=== PATIENT | female | born 1965 | race Caucasian/White ===

== ENCOUNTER 2017-04-14 22:39 | Emergency (ER) | payer OTHER ==
[~2017-04-14] VITALS: Ht 167.6 cm; Wt 77.1 kg
--- OUTSIDE RECORDS SUMMARY | 2017-04-14 22:45 | XMS REPORT | Continuity of Care Document ---
Author Author [facility] Organization [facility] Address Unknown Phone Unavailable Allergies Medications Problems Procedures Results Encounters ACCT No. Visit Date/Time Discharge Status Pt. Type Provider Facility Loc./Unit Complaint [id number] 02/28/2013 10:46:00 2012 23:59:59 C[facility] Outpatient
[2017-04-14] MEDS ORDERED: ITRA100C (22:57)
[2017-04-14] MEDS ORDERED: ESOM40CA52 (22:57)
[2017-04-14] MEDS ORDERED: ONDANSETRON 4 MG/2 ML (SDV) Z0FRAN ONE (23:02)
[2017-04-14] MEDS ORDERED: fentaNYL INJECTION 100 MCG/2 ML AMP ONE (23:02)
[2017-04-14] MEDS ORDERED: NS IV 1000 ML 1,000 ML ONE (23:03)
--- NOTE | 2017-04-14 23:11 | ED Abdominal Pain ---
General Chief Complaint: Abdominal/GI Problems Stated Complaint: ABDOMINAL PAIN/VOMITING Nursing Triage Note: c/o L sided ab pain, with n/v Sepsis Screen: No Definite Risk Source of Information: Patient, Spouse Exam Limitations: No Limitations History of Present Illness Time Seen By Provider: 23:01 Initial Comments Patient presents by private conveyance to the ER with her with chief complaint of about 8:00 tonight sudden onset of nausea vomiting and left-sided abdominal and flank pain. She is not having any discharge or dysuria. She has no fevers or chills or malaise. This has never happened before. She has had no abdominal surgeries. No recent trauma. She is having no constipation or diarrhea. She says she had a colonoscopy over 20 years ago and was told everything was okay. Allergies and Home Medications Allergies Coded Allergies: Penicillins (Verified Allergy, Unknown, 04/14/17) morphine (Verified Allergy, Unknown, 04/14/17) Home Medications Esomeprazole Magnesium 40 Mg Capsule., #30 (Reported) Itraconazole 100 Mg Capsule, #28 (Reported) Review of Systems Constitutional: No chills, No diaphoresis, No fever, No malaise Respiratory: Denies Cough, Denies Shortness of Air Cardiovascular: Denies Chest Pain, Denies Edema Gastrointestinal: See HPI, Denies Abdomen Distended, Abdominal Pain, Denies Diarrhea, Nausea, Denies Vomiting Genitourinary: Denies Burning, Denies Discharge Musculoskeletal: No back pain, No joint pain Skin: No pruritus, No rash Psychiatric/Neurological: Denies Headache, Denies Numbness Past [id number]-Irwhdj Hx Patient Social History Alcohol Use: Denies Use Recreational Drug Use: No Smoking Status: Never a Smoker Recent Foreign Travel: No Contact w/Someone Who Travel: No Recent Infectious Disease Expo: No Recent Hopitalizations: No Surgeries Surgeries: Hysterectomy Respiratory Respiratory Disorders: Pneumonia Neurological Neurological Disorders: Headaches /Migraines Physical Exam Vital Signs VS - Last 72 Hours, by Label 04/14/17 22:49 Temp 98.6 Pulse 83 Resp 18 B/P (MAP) 148/81 Pulse Ox 97 O2 Delivery Room Air Capillary Refill : Less Than 3 Seconds General Appearance: WD/WN, moderate distress HEENT: PERRL/EOMI, pharynx normal Neck: non-tender, supple, normal inspection Respiratory: lungs clear, normal breath sounds Cardiovascular: normal peripheral pulses, regular rate, rhythm, no edema Gastrointestinal: non tender, soft Extremities: non-tender, no calf tenderness, normal capillary refill Back: normal inspection, no CVA tenderness Neurologic/Psychiatric: alert, oriented x 3 Skin: normal color, warm/dry Progress/Results/Core Measures Results/Orders Lab Results Laboratory Tests Test 04/14/17 23:08 Range/Units White Blood Count 12.7 H 4.3-11.0 10^3/uL Red Blood Count 4.69 4.35-5.85 10^6/uL Hemoglobin 14.5 11.5-16.0 G/DL Hematocrit 43 35-52 % Mean Corpuscular Volume 91 80-99 FL Mean Corpuscular Hemoglobin 31 25-34 PG Mean Corpuscular Hemoglobin Concent 34 32-36 G/DL Red Cell Distribution Width 13.2 10.0-14.5 % Platelet Count 303 130-400 10^3/uL Mean Platelet Volume 10.5 H 7.4-10.4 FL Neutrophils (%) (Auto) 71 42-75 % Lymphocytes (%) (Auto) 23 12-44 % Monocytes (%) (Auto) 6 0-12 % Eosinophils (%) (Auto) 0 0-10 % Basophils (%) (Auto) 0 0-10 % Neutrophils # (Auto) 9.0 H 1.8-7.8 X 10^3 Lymphocytes # (Auto) 2.9 1.0-4.0 X 10^3 Monocytes # (Auto) 0.8 0.0-1.0 X 10^3 Eosinophils # (Auto) 0.0 0.0-0.3 10^3/uL Basophils # (Auto) 0.0 0.0-0.1 10^3/uL Urine Color BROWN H Urine Clarity VERY CLOUDY H Urine pH 5 5-9 Urine Specific [place]eland 1.025 H 1.016-1.022 Urine Protein 3+ H NEGATIVE Urine Glucose (UA) NEGATIVE NEGATIVE Urine Ketones 1+ H NEGATIVE Urine Nitrite POSITIVE H NEGATIVE Urine Bilirubin 1+ H NEGATIVE Urine Urobilinogen 1 NORMAL MG/DL Urine Leukocyte Esterase 2+ H NEGATIVE Urine RBC (Auto) 5+ H NEGATIVE Urine RBC TNTC H /HPF Urine WBC 10-25 H /HPF Urine Crystals NONE /LPF Urine Bacteria MODERATE H /HPF Urine Casts NONE /LPF Urine Mucus NEGATIVE /LPF Urine Culture Indicated YES Sodium Level 144 135-145 MMOL/L Potassium Level 4.2 3.6-5.0 MMOL/L Chloride Level 110 H 98-107 MMOL/L Carbon Dioxide Level 19 L 21-32 MMOL/L Anion Gap 15 H 5-14 MMOL/L Blood Urea Nitrogen 18 7-18 MG/DL Creatinine 1.06 0.60-1.30 MG/DL Estimat Glomerular Filtration Rate 54 BUN/Creatinine Ratio 17 Glucose Level 121 H 70-105 MG/DL Calcium Level 9.8 8.5-10.1 MG/DL Phosphorus Level 3.1 2.3-4.7 MG/DL Magnesium Level 2.1 1.8-2.4 MG/DL Total Bilirubin 0.3 0.1-1.0 MG/DL Aspartate Amino Transf (AST/SGOT) 25 5-34 U/L Alanine Aminotransferase (ALT/SGPT) 31 0-55 U/L Alkaline Phosphatase 82 40-136 U/L Troponin I < 0.30 <0.30 NG/ML Total Protein 7.4 6.4-8.2 GM/DL Albumin 4.3 3.2-4.5 GM/DL Amylase Level 96 25-125 U/L My Orders Orders - CAREN LORENZO Fentanyl Injection (Sublimaze Injection (04/14/17 23:02) Ondansetron Injection (Zofran Injectio (04/14/17 23:02) Ns Iv 1000 Ml (Sodium Chloride 0.9%) (04/14/17 23:03) Ct Abd/Pelvis Wo(Kidney Stone) (04/14/17 23:11) Amylase (04/14/17 23:11) Cbc With Automated Diff (04/14/17 23:11) Comprehensive Metabolic Panel (04/14/17 23:11) Magnesium (04/14/17 23:11) Troponin I (04/14/17 23:11) Ua Culture If Indicated (04/14/17 23:11) Phosphorus (04/14/17 23:11) Urine Culture (04/14/17 23:08) Ketorolac Injection (Toradol Injection) (04/15/17 00:00) Ceftriaxone Injection (Rocephin Injectio (04/15/17 00:15) Alfuzosin Tablet (Uroxatral Tablet) (04/15/17 00:15) Medications Given in ED Current Medications Medications Dose Ordered Sig/Irene Route Start Time Stop Time Status Last Admin Dose Admin Fentanyl Citrate 100 mcg STK-MED ONCE .ROUTE 04/14/17 23:02 04/14/17 23:08 DC 04/14/17 23:10 50 MCG Ketorolac Tromethamine 30 mg STK-MED ONCE .ROUTE 04/15/17 00:00 04/15/17 00:05 DC 04/15/17 00:06 30 MG Ondansetron HCl 4 mg STK-MED ONCE .ROUTE 04/14/17 23:02 04/14/17 23:08 DC 04/14/17 23:10 4 MG Sodium Chloride 1,000 ml @ ud STK-MED ONCE .ROUTE 04/14/17 23:03 04/14/17 23:09 DC 04/14/17 23:10 999 MLS/HR Vital Signs/I&O Vital Sign - Last 12Hours 04/14/17 22:49 Temp 98.6 Pulse 83 Resp 18 B/P (MAP) 148/81 Pulse Ox 97 O2 Delivery Room Air Blood Pressure Mean: 103 Progress Note : Time: 00:27 Progress Note Patient is a proximal 3 mm stones or prior past auto zone. She says she's had Rocephin in the past and did well with that despite her having throat swelling with penicillin so we will let her have that and send her home on Keflex and Flomax and it is not improved follow-up Monday with urology. Diagnostic Imaging Diagonstic Imaging: CT Plain Films/CT/US/NM/MRI: abdomen (pelvis kidney stone study) Comments 3 mm proximal left ureter stone otherwise okay looking. Reviewed: Reviewed [place] Study, Reviewed by Me Departure Impression Impression: Primary Impression: Kidney stone on left side Disposition: HOME, SELF-CARE Condition: Stable Departure-Patient Inst. Decision time for Depature: 00:29 Referrals: AMANDA SIERRA DO (PCP) Primary Care Physician TUNG DOE DNP (Family) Primary Care Physician Patient Instructions: Kidney Stones (DC) Add. Discharge Instructions: Drink plenty of fluids. Use Tylenol and heat to the left side as needed for your pain. If your pain is getting worse or unable to tolerate it or start having nausea and vomiting is not controlled with Zofran under the tongue every 6 hours as needed or you start having a fever then you should return to the ER. Otherwise plan on following with your primary care physician as needed. If you' re still having pain and have not caught stone in your urine strainer by Monday morning you should call urology, Dr. Whitley at [phone]. Take the Flomax 1 tablet every night until you pass the stone. It is not unusual to have some discomfort in your abdomen and back for up to a week after passing the stone. Take the antibiotics until completion. All discharge instructions reviewed with patient and/or family. Voiced understanding. Scripts Ondansetron (Zofran Odt) 4 Mg Tab.rapdis 4 MG PO Q6H Y for NAUSEA/VOMITING-1ST LINE, #20 TAB 0 Refills Prov: CAREN LORENZO 04/15/17 Tamsulosin HCl (Flomax) 0.4 Mg Cap 0.4 MG PO HS for 7 Days, #7 CAP 0 Refills Prov: CAREN LORENZO 04/15/17 Cephalexin (Keflex) 500 Mg Capsule 500 MG PO BID for 10 Days, #20 CAP 0 Refills Prov: CAREN LORENZO 04/15/17 Copy Copies To 1: MARY ELLEN DOE DO CAREN LORENZO Apr 14, 2017 23:11
[2017-04-14 23:21] LABS: BASOPHILS % (AUTO) 0 % (0-10); EOSINOPHILS % (AUTO) 0 % (0-10); KETONES,URINE 1+ (NEGATIVE); LEUKOCYTE ESTERASE ,URINE 2+ (NEGATIVE); LYMPHOCYTES # (AUTO) 2.9 X 10^3 (1.0-4.0); LYMPHOCYTES % (AUTO) 23 % (12-44); MEAN CORPUSCULAR HEMOGLOBIN 31 PG (25-34); MEAN CORPUSCULAR HGB CONC 34 G/DL (32-36); MEAN CORPUSCULAR VOLUME 91 FL (80-99); MEAN PLATELET VOLUME 10.5 FL (7.4-10.4); MONOCYTES # (AUTO) 0.8 X 10^3 (0.0-1.0); MONOCYTES % (AUTO) 6 % (0-12); NEUTROPHILS % (AUTO) 71 % (42-75); NITRITE,URINE POSITIVE (NEGATIVE); PH,URINE 5 (5-9); PLATELET COUNT 303 10^3/uL (130-400); PROTEIN,URINE 3+ (NEGATIVE); RED BLOOD COUNT 4.69 10^6/uL (4.35-5.85); RED CELL DISTRIBUTION WIDTH 13.2 % (10.0-14.5); UROBILINOGEN,URINE 1 MG/DL (NORMAL); WHITE BLOOD COUNT 12.7 10^3/uL (4.3-11.0)
[2017-04-14 23:35] LABS: BILIRUBIN,URINE 1+ (NEGATIVE)
[2017-04-14 23:47] LABS: ALANINE AMINOTRANSFERASE 31 U/L (0-55); ALBUMIN 4.3 GM/DL (3.2-4.5); AMYLASE 96 U/L (25-125); ANION GAP 15 MMOL/L (5-14); ASPARTATE AMINO TRANSFERASE 25 U/L (5-34); BILIRUBIN,TOTAL 0.3 MG/DL (0.1-1.0); BLOOD UREA NITROGEN 18 MG/DL (7-18); BUN/CREATININE RATIO 17; CALCIUM 9.8 MG/DL (8.5-10.1); CARBON DIOXIDE 19 MMOL/L (21-32); CHLORIDE 110 MMOL/L (98-107); CREATININE SERUM 1.06 MG/DL (0.60-1.30); GFR ESTIMATED 54; GLUCOSE 121 MG/DL (70-105); MAGNESIUM 2.1 MG/DL (1.8-2.4); PHOSPHORUS 3.1 MG/DL (2.3-4.7); POTASSIUM 4.2 MMOL/L (3.6-5.0); SODIUM 144 MMOL/L (135-145); TOTAL PROTEIN 7.4 GM/DL (6.4-8.2)
[2017-04-14 23:53] LABS: TROPONIN I < 0.30 NG/ML (<0.30)
[2017-04-15] MEDS ORDERED: KETOROLAC 30 MG/ML VIAL ONE
[2017-04-15] MEDS ORDERED: ALFUZOSIN HCL 10 MG TAB (UROXATRAL) PO SCH (00:15)
[2017-04-15] MEDS ORDERED: cefTRIAXone INJECTION 1,000 MG in NS (IVPB) 50 ML IV ONE (00:15)
[2017-04-15] MEDS ORDERED: RX-ONDANSETRON 4 MG ODT (ZOFRAN) PPK #4 PO STA (00:26)
[2017-04-15] MEDS ORDERED: ONDA4TAB8 PO (00:34)
[2017-04-15] MEDS ORDERED: CEPH-507 PO (00:34)
[2017-04-15] MEDS ORDERED: TAMS0.4C98 PO (00:34)
[2017-04-15 01:04] VITALS: BP 138/80
--- NOTE | 2017-04-15 08:06 | Diagnostic Imaging Report ---
PROCEDURE: CT urinary tract, rule out kidney stone. TECHNIQUE: Multiple contiguous axial images were obtained through the abdomen and pelvis without the use of intravenous contrast. INDICATION: Abdominal pain, nausea and vomiting. CORRELATION STUDY: None FINDINGS: LOWER THORAX: Minimal atelectasis at the base. Small hiatal hernia. Bulky calcification along the anterior heart in the lower anterior mediastinum. LIVER: Multiple scattered low densities within the liver favoring probable cyst but incompletely characterized. GALLBLADDER: Present and unremarkable. No bile duct dilatation. SPLEEN: Unremarkable small splenule. PANCREAS: Unremarkable. ADRENAL GLANDS: Unremarkable. KIDNEYS: There is a 3 mm stone in the proximal left ureter resulting in mild hydronephrosis. Right kidney and collecting system unremarkable. ABDOMINAL AORTA: Unremarkable, nonaneurysmal. GASTROINTESTINAL TRACT: No obstruction or inflammation. Normal appendix. URINARY BLADDER: Decompressed. REPRODUCTIVE: Post hysterectomy changes. OSSEOUS STRUCTURES: No acute abnormality. IMPRESSION: 1. 3 mm stone proximal left ureter resulting in mild left-sided hydronephrosis. A preliminary report was provided by [facility]. Dictated by: Dictated on workstation # [id number]
--- NOTE | 2017-04-15 08:26 | Diagnostic Imaging Report ---
INDICATION: Kidney stone. TECHNIQUE: Supine and upright view of the abdomen 1:11 AM CORRELATION STUDY: Renal colic CT 04/14/2017 FINDINGS: Tiny stone is noted just inferior to the L2 transverse process on the left likely corresponding to the proximal left ureteral stone. Multiple additional calcifications in the pelvis favoring vascular phleboliths. Moderate amount of overlying bowel gas and stool present. IMPRESSION: 1. Tiny calcifications adjacent to the L2 transverse process. Likely corresponds to the known left ureteral stone. Dictated by: Dictated on workstation # [id number]
== END 2017-04-15 01:04 | disposition home or self-care (01) ==
LOC: EDUNIT# 22:39 → ER 22:41
DX: N20.0 Calculus of kidney (principal); G43.909 Migraine, unspecified, not intractable, without status migrainosus; Z90.710 Acquired absence of both cervix and uterus
CPT/HCPCS: 36415; 74020; 74176; 80053; 81000; 82150; 83735; 84100; 84484; 85025; 87088; 87186

== ENCOUNTER → 2017-12-14 | Outpatient (CLI) | payer OTHER ==
[~2017-12-14] MED LIST: CEPH-507 PO; ESOM40CA52; ITRA100C; ONDA4TAB8 PO; TAMS0.4C98 PO
--- NOTE | 2017-12-14 19:33 | Diagnostic Imaging Report ---
INDICATION: Digital mammogram bilateral screening. This study was compared to the prior exam of 05/13/11. At this time, there are no current complaints. The current study was also evaluated with a Computer Aided Detection (CAD) system. FINDINGS: The fibroglandular tissue in both breasts is heterogeneously dense. This does limit the sensitivity of this exam. Overall, there does not appear to have been any significant change when compared to the prior study. No primary or secondary sign of Malignancy is noted. IMPRESSION: 1. There is no evidence of malignancy. 2. The patient should have her annual bilateral screening mammogram on schedule in November of 2018. ACR BI-RADS Category 1: Negative. Result letter will be mailed to the patient. Note: At least 10% of breast cancer is not imaged by mammography. Dictated by: Dictated on workstation # [id number]
== END ==
LOC: RAD 07:50
PROVIDERS: ATTEND Nurse Practitioner
DX: Z12.31 Encounter for screening mammogram for malignant neoplasm of breast (principal)
CPT/HCPCS: 77067

== ENCOUNTER → 2021-03-16 | Outpatient (CLI) | payer OTHER ==
[~2021-03-16] MED LIST changes: -TAMS0.4C98 PO; +TMSL.4C PO
== END ==
LOC: CARD 08:16
PROVIDERS: ATTEND Emergency Medicine
DX: I33.9 Acute and subacute endocarditis, unspecified (principal)
CPT/HCPCS: 93306

== ENCOUNTER → 2022-07-08 | Outpatient (CLI) | payer OTHER ==
[~2022-07-08] MED LIST changes: -ITRA100C; +ITRA100C9
--- NOTE | 2022-07-08 10:43 | Diagnostic Imaging Report ---
INDICATION: Cough, bronchitis. PA and lateral chest obtained at 08:39 a.m. There is no prior chest x-ray for comparison. Heart is normal in size. There is a benign-appearing pericardial calcification in the right cardiophrenic angle, this was seen on previous CT of 04/14/2017 and appears unchanged. There is no focal infiltrate or pneumothorax or pleural fluid. IMPRESSION: No acute process in the chest. Stable benign appearing calcification along the right cardiophrenic angle. Dictated by: Dictated on workstation # [id number]
== END ==
LOC: RAD FS 08:18
PROVIDERS: ATTEND Emergency Medicine
DX: J42 Unspecified chronic bronchitis (principal)
CPT/HCPCS: 71046

== ENCOUNTER → 2022-12-21 | Outpatient (CLI) | payer OTHER ==
--- NOTE | 2022-12-21 09:02 | Diagnostic Imaging Report ---
PROCEDURE: US Gallbladder. TECHNIQUE: Multiple Real-time grayscale images were obtained over the right upper quadrant in various projections. INDICATION: Cholecystitis with nausea and abdominal distention. FINDINGS: The liver is normal in size at approximately 15 cm. The portal vein is patent and shows normal direction of flow. There is a cyst in the left lobe of the liver measuring approximately 2.6 x 2.2 cm in size. A cystic lesion in the right lobe measures 3.8 x 2.9 cm. The gallbladder does contain a non-mobile echogenic focus which may represent a small polyp. No wall thickening is identified. No pericholecystic fluid or biliary ductal dilatation is seen. The visualized pancreas is unremarkable. The aorta is nonaneurysmal. The IVC is patent. The right kidney does contain an approximately 6 mm echogenic focus in the lower pole which may represent a nonobstructing calculus. There is no ascites. IMPRESSION: 1. Hepatic cysts. 2. No evidence of cholelithiasis or acute cholecystitis. 3. Probable nonobstructing right renal calculus. Dictated by: Dictated on workstation # [id number]
== END ==
LOC: RAD 07:16
PROVIDERS: ATTEND Emergency Medicine
DX: K81.9 Cholecystitis, unspecified (principal); K76.89 Other specified diseases of liver
CPT/HCPCS: 76705